=== PATIENT | male | born 1990 | race African-American/Black ===

== ENCOUNTER 2017-07-03 04:10 | Emergency (ER) | payer BC ==
[~2017-07-03] VITALS: Ht 190.5 cm; Wt 97.5 kg
[~2017-07-03 04:10] MED LIST: KEFLEX500 MG PO
== END 2017-07-03 07:35 | disposition home or self-care (01) ==
LOC: ER 04:10
DX: S16.1XXA Strain of muscle, fascia and tendon at neck level, initial encounter (principal); J45.909 Unspecified asthma, uncomplicated; F17.210 Nicotine dependence, cigarettes, uncomplicated; V49.49XA Driver injured in collision with other motor vehicles in traffic accident, initial encounter; Y93.89 Activity, other specified; Y92.89 Other specified places as the place of occurrence of the external cause; Y99.8 Other external cause status

== ENCOUNTER 2017-09-24 18:31 | Emergency (ER) | payer BC ==
[~2017-09-24] VITALS: Ht 190.5 cm; Wt 94.3 kg
[2017-09-24] MEDS ORDERED: NORCO 5-325 TA1 EACH PO (18:50)
[2017-09-24] MEDS ORDERED: ASPIRIN325 PO (19:06)
[2017-09-24 19:31] VITALS: BP 130/50
== END 2017-09-24 19:31 | disposition home or self-care (01) ==
LOC: ER 18:31
DX: M94.0 Chondrocostal junction syndrome [Tietze] (principal); J45.909 Unspecified asthma, uncomplicated; F17.210 Nicotine dependence, cigarettes, uncomplicated